=== PATIENT | male | born 1965 | race African-American/Black ===

== ENCOUNTER 2017-01-09 05:52 | Day surgery (SDC) | payer OTHER ==
--- NOTE | 2017-01-08 10:14 | Pre-Procedure Note/Attestation ---
Pre-Procedure Note/Attestation Complete Prior to Procedure Planned Procedure: left Procedure Narrative: phaco with IOL, OS Indications for Procedure Pre-Operative Diagnosis: Cataract Attestation I attest that I discussed the nature of the procedure; its benefits; risks and complications; and alternatives (and the risks and benefits of such alternatives ), prior to the procedure, with the patient (or the patient's legal mortician supplies sales representative). I attest that, if there was a reasonable possibility of needing a blood transfusion, the patient (or the patient's legal mortician supplies sales representative) was given the [facility] standardized written summary, pursuant to the [place] Blood Safety Act ([place] Health and Safety Code # 1645, as amended). I attest that I re-evaluated the patient just prior to the surgery and that there has been no change in the patient's H&P, except as documented below: CARLOTTA DOZIER Jan 08, 2017 10:14
--- NOTE | 2017-01-08 10:17 | Opthalmology H&P ---
Ophthalmology H&P H&P Chief Complaint: decreased vision in left eye HPI Vision Affects Ability to: read, focus/use eyes together, manage personal affairs HPI Narrative blurry vision, OS Exam Visual Acuity: OD: 20/40 OS: CF Tension: OD: 8 OS: 11 Eye Exam: normal OU: external exam, palpebral fissure-width, marginal reflex distance, levator function, corneas, anterior chambers, findings: lens - OD: ns OS: PSC, fundus exam - PDR with ME OU Assessment/Plan Diagnosis: (1) Cataract Treatment Plan: cataract extraction w/ lens implant Goals of Treatment: improvement of vision, enhance quality of life Attestation Attestation The risks and benefits of the surgery as well as alternative procedures were explained to the patient in detail. CARLOTTA DOZIER Jan 08, 2017 10:17
[2017-01-09] VITALS (10 sets, daily range): BP systolic 110–131; BP diastolic 70–90
[~2017-01-09] VITALS: Ht 177.8 cm; Wt 113.4 kg
[~2017-01-09 05:52] MED LIST: Cyclopentolate 1% Opth Sol 2ml LEFT EYE SCH
[2017-01-09] MEDS: Ketorolac Tromethamine Opth 5ml Soln LEFT EYE SCH ×3 (06:51→07:20)
[2017-01-09] MEDS: Cyclopentolate 1% Opth Sol 2ml LEFT EYE SCH ×3 (06:52→07:21)
[2017-01-09] MEDS: Tobramycin Op Soln 0.3% 5ml LEFT EYE SCH ×3 (06:53→07:21)
[2017-01-09] MEDS: Phenylephrine 10% Opth Soln 5ml LEFT EYE SCH ×3 (06:53→07:21)
[2017-01-09] MEDS: Tropicamide 1% Opth 15ml Soln LEFT EYE SCH ×3 (06:53→07:21)
[2017-01-09] MEDS ORDERED: Akten 3.5% 1ml Btl LEFT EYE ONE (07:00)
[2017-01-09] MEDS ORDERED: Ketorolac Tromethamine Opth 5ml Soln LEFT EYE SCH (07:00)
[2017-01-09] MEDS ORDERED: Carbachol 0.01% Op Soln 1.5ml vial ONE (07:01)
[2017-01-09] MEDS ORDERED: Povidone-Iodine 5% opth solution ONE (07:01)
[2017-01-09] MEDS ORDERED: acetaZOLAMIDE 500mg Inj ONE (07:01)
[2017-01-09] MEDS ORDERED: Lidocaine 4% Amp ONE (07:01)
[2017-01-09] MEDS ORDERED: EPINEPHrine 1mg/1ml Amp ONE ×2 (07:02→07:30)
[2017-01-09] MEDS ORDERED: BSS 15ml BTL ONE (07:02)
[2017-01-09] MEDS ORDERED: DIOVAN320 MG ORAL (07:02)
[2017-01-09] MEDS ORDERED: TRESIBA FL200 UNIT/1 SQ (07:02)
[2017-01-09] MEDS ORDERED: Bupivacaine 0.75% 30ml vial INJ ONE (07:02)
[2017-01-09] MEDS ORDERED: METFORMIN HCL1000 M1 ORAL (07:02)
[2017-01-09] MEDS ORDERED: Lidocaine 2% MPF 5ml Vial INJ ONE (07:02)
[2017-01-09] MEDS ORDERED: Lidocaine 1% MPF 10mg/ml 5ml ONE (07:03)
[2017-01-09] MEDS ORDERED: Sodium Hyaluronate 14 mg/ml 0.85ml ONE (07:03)
[2017-01-09] MEDS ORDERED: Pilocarpine 2% Opth 15ml Soln ONE (07:03)
[2017-01-09] MEDS ORDERED: Pred Forte 1% Opth Susp 1ml ONE (07:30)
[2017-01-09] MEDS ORDERED: Midazolam 2mg/2ml Inj ONE (07:30)
[2017-01-09] MEDS ORDERED: fentaNYL 100 mcg/2 mL IV ONE (07:30)
[2017-01-09] MEDS ORDERED: LR 1000ml ONE (07:30)
[2017-01-09] MEDS ORDERED: NS Irrig 1000ml ONE (07:30)
[2017-01-09] MEDS ORDERED: Sterile Water Irrig 1000ml IRRIG ONE (07:30)
[2017-01-09] MEDS ORDERED: Dexamethasone 4mg/ml vial ONE (07:30)
[2017-01-09] MEDS ORDERED: BSS 500ml btl ONE (07:30)
[2017-01-09] MEDS ORDERED: Maxitrol Opth Oint 3.5gm ONE (07:30)
--- NOTE | 2017-01-09 07:47 | Anethesia Preoperative Eval ---
Anesthesia Pre-op PMH/ROS General Date of Evaluation: Jan 09, 2017 Time of Evaluation: 07:46 Anesthesiologist: nicolette ASA Score: ASA 2 Mallampati Score Class I : Soft palate, uvula, fauces, pillars visible Class II: Soft palate, uvula, fauces visible Class III: Soft palate, base of uvula visible Class IV: Only hard plate visible Mallampati Classification: Class III Surgeon: guero Diagnosis: cataract Surgical Procedure: cataract extraction left eye Anesthesia History: none Family History: no anesthesia problems Allergies: Coded Allergies: No Known Allergies (Unverified , 01/08/17) Medications: see eMAR Past Medical History Cardiovascular: Reports: HTN Pulmonary: Denies: asthma, COPD, GABRIELLE, other Gastrointestinal/Genitourinary: Denies: GERD, CRI, ESRD, other Neurologic/Psychiatric: Denies: dementia, CVA, depression/anxiety, TIA, other Endocrine: Reports: DM HEENT: Reports: cataract (L) Hematology/Immune: Denies: anemia, DVT, bleeding disorder, other Musculoskeletal/Integumentary: Denies: OA, RA, DJD, DDD, edema, other PSxH Narrative: foot surgery - no anesth problem Anesthesia Pre-op Phys. Exam Physician Exam Last Vital Signs Date Time Temp Pulse Resp B/P (MAP) Pulse Ox O2 Delivery O2 Flow Rate FiO2 01/09/17 07:08 97.9 81 20 131/87 95 Room Air Constitutional: NAD Neurologic: CN 2-12 intact Cardiovascular: RRR Respiratory: CTA Gastrointestinal: S/NT/ND Airway Exam Mallampati Score: Class II MO: full Neck: thick ROM: full Dentures: no upper, no lower Anesthesia Pre-op A/P Labs Accucheck 118 Studies Pre-op Studies: EKG - sr Risk Assessment & Plan Assessment: denies cp Plan: mac Status Change Before Surgery: No Pre-Antibiotics Drug: none Given Within 1 Hr of Incision: No POLLY SOLOMON CRNA Jan 09, 2017 07:47
--- NOTE | 2017-01-09 09:16 | Immediate Post-Op Evaluation ---
Immediate Post-Op Evalulation Immediate Post-Op Evalulation Procedure: cataract extraction IOL left eye Date of Evaluation: Jan 09, 2017 Time of Evaluation: 08:37 IV Fluids: 300 Blood Pressure Systolic: 134 Blood Pressure Diastolic: 74 Pulse Rate: 82 Respiratory Rate: 14 O2 Sat by Pulse Oximetry: 99 Temperature (Fahrenheit): 97.7 Nausea: No Vomiting: No Complications none Patient Status: awake, reacts Hydration Status: adequate Drug: none TARRILLIONPOLLY SALES RESEARCH ANALYST Jan 09, 2017 09:16
--- NOTE | 2017-01-09 09:30 | 48 Hour Post Anesthesia Eval ---
Post Anesthesia Evaluation Procedure: cataract extraction IOL left eye Date of Evaluation: Jan 09, 2017 Time of Evaluation: 09:30 Blood Pressure Systolic: 118 0: 83 Pulse Rate: 83 Respiratory Rate: 14 O2 Sat by Pulse Oximetry: 98 Airway: patent Nausea: No Vomiting: No Hydration Status: adequate Cardiopulmonary Status: stable Mental Status/LOC: patient returned to baseline Post-Anesthesia Complications: none Follow-up care needed: N/A POLLY SOLOMON CRNA Jan 09, 2017 09:30
--- NOTE | 2017-01-12 09:11 | Brief Operative Note ---
Immediate Post Operative Note Operative Note Chief Complaint: blurry visiion Pre-op Diagnosis: Cataract, OS Procedure: phaco with IOL, OS Post-op Diagnosis: Pseudophakia Post-op Diagnosis: same as pre-op Findings: consistent w/pre-op dx studies Surgeon: Margareth Anesthesiologist: Gladys Anesthesia: MAC Specimen: none Complications: none Condition: stable Fluids: LR Estimated Blood Loss: none Drains: none Implant(s) used?: Yes CARLOTTA DOZIER Jan 12, 2017 09:10
--- NOTE | 2017-01-12 09:33 | Operative Note - PDOC ---
Operative Note Operative Note Date of Operation/Procedure: Jan 09, 2017 Chief Complaint: blurry vision Pre-op Diagnosis: Cataract, OS Procedure: phaco with IOL, OS Post-op Diagnosis: Pseudophakia Post-op Diagnosis: same as pre-op Operative Findings: consistent w/pre-op dx studies Surgeon: Margareth Anesthesiologist: Gladys Anesthesia: MAC Specimen: none Complications: none Condition: stable Fluids: LR Estimated Blood Loss: none Drains: none Implant(s) used?: Yes Indications for Procedure cataract Description of Procedure This patient has been complaining visually significant cataract in the affected eye with the best corrected visual acuity under moderate glare conditions worse. The patient complains of difficulties with glare in performing activities of daily living and wants to manage personal affairs with comfort and accuracy and see well enough to move with safety at home and outdoors. The risks, benefits and alternatives of the procedure were discussed with the patient in the office prior to scheduling surgery. All questions from the patient were answered after the surgical procedure was explained in detail. The risks of the procedure as explained to the patient include, but are not limited to, pain, infection, bleeding, loss of vision, retinal detachment, need for further surgery, loss of lens nucleus, double vision, etc. Alternative of the procedure is to do nothing or seek a second opinion. Informed consent for this procedure was obtained from the patient. The patient was referred to a primary care physician for a cardiopulmonary clearance prior to surgery, after proper evaluation was done patient was properly scheduled for outpatient surgery. The patient was brought to the operating room where the anesthesiologist established I.V. lines and cardiac monitoring leads. Mild intravenous sedation was administered. Gentle digital pressure was applied to the eye for approximately 2 minutes to help diffuse the anesthetic. The patient was then prepared with a 5% solution of povidone-iodine to the conjunctival fornix and lashes, and a 5% solution of povidone-iodine to the lids and periorbital skin. The patient was then draped in the usual sterile fashion. A lid speculum were then placed in the operative eye. A keratome blade was then used to create a biplanar incision into the anterior chamber. Healon was then instilled into the anterior chamber. A capsulorrhexis was then fashioned with a utrata forceps followed by hydrodissection and hydrodelineation of the lens nucleus. Paracentesis incision was made at 3 o'clock with sharp blade. The phacoemulsification unit, after being properly adfjust and tested, was then used to emulsify the nucleus. Residual cortical material was aspirated with the irrigation and aspiration unit. Healon was then instilled into the anterior chamber. The corneal wound was then enlarged to the size of the optic with the clem keratome blade. The intraocular lens was then inspected for right power and size and thought to be satisfactory. Then the lens was gently placed in the capsular bag. Positioning within the capsular bag was confirmed by direct visualization. Optic centration was accomplished with a Sinskey hook. [employer] was removed from the anterior chamber using the irrigation and aspiration unit. The corneal wound was then tested for leaks and none were found. The lid speculum were then removed. Sponge and needle counts were correct. An eye patch and shield were placed over the operative eye. The patient was taken to the recovery room in stable condition. There were no complications. The patient tolerated the procedure well. The patient was then transferred to the ambulatory surgery unit in stable and satisfactory condition , was given detailed written instructions and asked to follow up tomorrow morning in the office. Dictated & Transcribed: Magalys: Karen BERMUDEZ JAMES Jan 12, 2017 09:33
== END 2017-01-09 09:50 | disposition home or self-care (01) ==
LOC: SUR 05:52
DX: H26.9 Unspecified cataract (principal); I10 Essential (primary) hypertension; E78.5 Hyperlipidemia, unspecified; M19.90 Unspecified osteoarthritis, unspecified site; E11.49 Type 2 diabetes mellitus with other diabetic neurological complication; E11.39 Type 2 diabetes mellitus with other diabetic ophthalmic complication; R43.0 Anosmia; Z83.3 Family history of diabetes mellitus; Z79.84 Long term (current) use of oral hypoglycemic drugs; Z79.82 Long term (current) use of aspirin; Z82.49 Family history of ischemic heart disease and other diseases of the circulatory system
CPT/HCPCS: 66984; 82962; J0171; J1100; J2250; J3010; J3370; J7120; V2632; 94003; 94150